=== PATIENT | female | born 1945 | race Caucasian/White ===

== ENCOUNTER 2019-06-27 05:03 | Emergency (ER) | payer MEDICARE ==
[2019-06-27] MEDS ORDERED: FENTANYL CITRATE INJ/PF 100 MCG/2 ML AMPUL IV ONE (05:11)
[2019-06-27] MEDS ORDERED: ONDANSETRON HCL INJ/PF 4 MG/2 ML SDV IV ONE ×2 (05:12→07:46)
--- NOTE | 2019-06-27 05:16 | ER Document Report ---
ED Medical Screen (RME) - General Stated Complaint: CHEST PAIN Time Seen by Provider: 06/27/19 05:07 Notes: 73-year-old female chief complaint of chest pain in her lower chest and upper abdomen that started last night around 11 PM, symptoms started resolving and then came back, intermittently have been sharp, denies radiation to the back. She states she got nauseated and vomited once. Past medical history includes CABG, CAD with stents, hypertension, hyperlipidemia, GERD. Denies abdominal surgeries. TRAVEL OUTSIDE OF THE [place] IN LAST 30 DAYS: No - Related Data Allergies/Adverse Reactions: atorvastatin calcium [From Lipitor] Allergy (Verified 02/19/13 17:27) ciprofloxacin [From Cipro] Allergy (Verified 02/19/13 17:27) ciprofloxacin HCl [From Cipro] Allergy (Verified 02/19/13 17:27) oxycodone [Oxycodone] Allergy (Verified 02/19/13 17:27) prednisone [Prednisone] Allergy (Verified 02/19/13 17:27) Sulfa (Sulfonamide Antibiotics) Allergy (Verified 02/19/13 17:27) butorphanol tartrate [From Stadol] Adverse Reaction (Verified 02/19/13 17:27) codeine [Codeine] Adverse Reaction (Verified 02/19/13 17:27) Past Medical History - Past Medical History Cardiac Medical History: Reports: Hx Heart Attack Pulmonary Medical History: Reports: Hx Asthma - as a child Endocrine Medical History: Reports: Hx Hypothyroidism Past Surgical History: Reports: Hx Cardiac Catheterization, Hx Cardiac Surgery - CABG, Hx Cholecystectomy, Hx Open Heart Surgery, Hx Thyroid Surgery, Hx Tubal Ligation - Immunizations Immunizations up to date: Yes Hx Diphtheria, Pertussis, Tetanus Vaccination: Yes Physical Exam - General General appearance: Other - Patient is alert and cooperative but appears to be in pain and is restless - Abdominal Tenderness: Tender - Tender in the generalized upper abdomen Course - Re-evaluation Re-evalutation: Patient is in pain. She does have unremarkable vital signs initially, she does have upper abdominal pain and vomited, patient will be treated for pain and nausea, work-up for cardiopulmonary and abdominal causes is pending. I have greeted and performed a rapid initial assessment of this patient. A comprehensive ED assessment and evaluation of the patient, analysis of test resu lts and completion of the medical decision making process will be conducted by additional ED providers.
[2019-06-27 05:22] LABS: ABSOLUTE BASOPHILS # (AUTO) 0.1 10^3/uL (0.0-0.2); ABSOLUTE EOSINOPHILS # (AUTO) 0.2 10^3/uL (0.0-0.6); ABSOLUTE LYMPHOCYTES (AUTO) 1.4 10^3/uL (0.5-4.7); ABSOLUTE MONOCYTES (AUTO) 0.5 10^3/uL (0.1-1.4); ABSOLUTE NEUT (AUTO) 5.8 10^3/uL (1.7-8.2); BASOPHILS % (AUTO) 1.1 % (0-2); EOSINOPHILS % (AUTO) 2.1 % (0-6); HEMOGLOBIN 12.7 g/dL (12.0-15.5); LYMPHOCYTES % (AUTO) 17.9 % (13-45); MEAN CORPUSCULAR HEMOGLOBIN 30.1 pg (27.0-33.4); MEAN CORPUSCULAR HGB CONC 34.4 g/dL (32.0-36.0); MEAN CORPUSCULAR VOLUME 87 fl (80-97); MONOCYTES % (AUTO) 6.8 % (3-13); PLATELET COUNT 195 10^3/uL (150-450); RED BLOOD COUNT 4.24 10^6/uL (3.72-5.28); RED CELL DISTRIBUTION WIDTH 13.6 % (11.5-14.0); SEGMENTED NEUTROPHILS % (AUTO) 72.1 % (42-78); TOTAL CELLS COUNTED % (AUTO) 100 %
[2019-06-27 05:40] LABS: ALBUMIN 3.5 g/dL (3.5-5.0); ALKALINE PHOSPHATASE 66 U/L (38-126); ANION GAP 6 (5-19); ASPARTATE AMINO TRANSFERASE 20 U/L (14-36); BILIRUBIN,DIRECT 0.2 mg/dL (0.0-0.4); BILIRUBIN,TOTAL 0.4 mg/dL (0.2-1.3); BLOOD UREA NITROGEN 22 mg/dL (7-20); CALCIUM 8.4 mg/dL (8.4-10.2); CARBON DIOXIDE 22 mmol/L (22-30); CHLORIDE 106 mmol/L (98-107); GLUCOSE 126 mg/dL (75-110); POTASSIUM 4.6 mmol/L (3.6-5.0); TOTAL PROTEIN 6.3 g/dL (6.3-8.2)
--- NOTE | 2019-06-27 06:09 | ER Document Report ---
ED General - General Chief Complaint: Chest Pain Stated Complaint: CHEST PAIN Time Seen by Provider: 06/27/19 05:07 Primary Care Provider: CHARMAINE HURTADO NP [Primary Care Provider] - Follow up as needed Mode of Arrival: Medic Information source: Patient, Emergency Med Personnel TRAVEL OUTSIDE OF THE [place] IN LAST 30 DAYS: No - HPI Onset: Yesterday Onset/Duration: Gradual, Worse Quality of pain: Sharp, Throbbing Severity: Severe Pain Level: 5 Context: Patient is a 73-year-old female presenting to the emergency department chief complaint of chest pain, patient is coming in via EMS. Patient states that it started about 11 PM last evening patient states that by 3 AM the pain was 10 out of 10 and EMS was called to the house. Patient states she did take 2 nitroglycerin prior to EMS arrival and EMS gave her 2 sublingual sprays of nitro when she presented to the emergency department she was given 50 mcg of fentanyl to assist with pain management. Patient does have a prior history of [place] in 1989 CABG in 1995 angioplasty to the right lower extremity several weeks back. Patient states that she was outside cutting the grass and weed eating yesterday. Associated symptoms: Nausea, Sweating Exacerbated by: Denies Relieved by: Denies Similar symptoms previously: Yes Recently seen / treated by doctor: No - Related Data Allergies/Adverse Reactions: atorvastatin calcium [From Lipitor] Allergy (Verified 02/19/13 17:27) ciprofloxacin [From Cipro] Allergy (Verified 02/19/13 17:27) ciprofloxacin HCl [From Cipro] Allergy (Verified 02/19/13 17:27) oxycodone [Oxycodone] Allergy (Verified 02/19/13 17:27) prednisone [Prednisone] Allergy (Verified 02/19/13 17:27) Sulfa (Sulfonamide Antibiotics) Allergy (Verified 02/19/13 17:27) butorphanol tartrate [From Stadol] Adverse Reaction (Verified 02/19/13 17:27) codeine [Codeine] Adverse Reaction (Verified 02/19/13 17:27) Past Medical History - General Information source: Patient, Emergency Med Personnel, [facility] Records - Social History Smoking Status: Current Every Day Smoker Cigarette use (# per day): Yes Chew tobacco use (# tins/day): No Smoking Education Provided: Yes Frequency of alcohol use: None Drug Abuse: None Lives with: Spouse/Significant other Family History: Reviewed & Not Pertinent Patient has suicidal ideation: No Patient has homicidal ideation: No - Past Medical History Cardiac Medical History: Reports: Hx Coronary Artery Disease, Hx Heart Attack Pulmonary Medical History: Reports: Hx Asthma - as a child Endocrine Medical History: Reports: Hx Hypothyroidism Past Surgical History: Reports: Hx Cardiac Catheterization, Hx Cardiac Surgery - CABG, Hx Cholecystectomy, Hx Open Heart Surgery, Hx Thyroid Surgery, Hx Tubal Ligation - Immunizations Immunizations up to date: Yes Hx Diphtheria, Pertussis, Tetanus Vaccination: Yes Hx Pneumococcal Vaccination: 01/26/14 Review of Systems - Review of Systems Constitutional: Diaphoresis EENT: No symptoms reported Cardiovascular: See HPI Respiratory: No symptoms reported Gastrointestinal: No symptoms reported Genitourinary: No symptoms reported Female Genitourinary: No symptoms reported Musculoskeletal: No symptoms reported Skin: No symptoms reported Hematologic/Lymphatic: No symptoms reported Neurological/Psychological: No symptoms reported -: Yes All other systems reviewed and negative Physical Exam - Vital signs Vitals: BP 142/77 H 06/27/19 05:11 Course - Re-evaluation Re-evalutation: 06/27/19 06:30 Called [facility] auto accept for Chest Pain/ NSTEMI, currently waiting on bed assignment. Patient's laboratory EKG and radiologic results have been reviewed. Considering the patient's prior history and presenting symptomatology I feel most appropriate the patient qualifies for transfer to higher level care facility for NSTEMI. 06/27/19 06:52 Patient accepted at [facility], Dr Kody Matute. Currently waiting transportation. Patient has been maintained on a athletic monitor while in emergency department after initial management patient has remained stable without decompensation. Repeat cardiac troponin has been ordered for 0 700. 06/27/19 08:08 EMS is here for accepting the patient - Vital Signs Vital signs: Temp Pulse Resp BP Pulse Ox 97.5 F 14 116/65 92 06/27/19 07:30 06/27/19 07:31 06/27/19 07:31 06/27/19 07:31 - Laboratory Result Diagrams: 06/27/19 05:00 06/27/19 05:00 Laboratory results interpreted by me: 06/27/19 05:00 Sodium 133.5 L BUN 22 H Glucose 126 H - EKG Interpretation by Nh EKG shows normal: Sinus rhythm Rate: Normal Rhythm: NSR When compared to previous EKG there are: Previous EKG unavailable Additional EKG results interpreted by me: 06/27/19 08:07 Initial EKG obtained at 0511 hrs. showed sinus rhythm [address] elevation mild left axis deviation no ectopy repeat EKG at 0609 similar rhythm rate of 51 bpm there is PVCs and no appreciable changes in morphology 30 EKG was obtained at 8 AM secondary to increasing chest pain which does show increasing T wave inversion in the domingo-lateral leads Discharge - Discharge Clinical Impression: NSTEMI (non-ST elevated myocardial infarction), Tobacco use disorder Chest pain Qualifiers: Chest pain type: unspecified Qualified Code(s): R07.9 - Chest pain, unspecified Condition: Stable Disposition: [facility] [place] Referrals: CHARMAINE HURTADO NP [Primary Care Provider] - Follow up as needed
--- NOTE | 2019-06-27 06:37 | RADIOLOGY REPORT (SQ) ---
EXAM DESCRIPTION: XR CHEST 1 VIEW COMPLETED DATE/TME: 06/27/2019 05:11 CLINICAL HISTORY: 73 years, Female, chest pain COMPARISON: 10/28/2014 chest NUMBER OF VIEWS: 1 TECHNIQUE: Portable chest LIMITATIONS: None. FINDINGS: Heart size is normal. Stable postsurgical change. Atheromatous change thoracic aorta. No pneumothorax. Patchy airspace opacity left lung base. IMPRESSION: Patchy left basilar airspace opacity copyright 2010 [employer]- All Rights Reserved
[2019-06-27] MEDS ORDERED: NITROGLYCERIN 2% OINTMENT 1 GM PACKET TP ONE (07:43)
[2019-06-27] MEDS ORDERED: NITROGLYCERIN 2% OINTMENT 1 GM PACKET ONE (07:47)
[2019-06-27] MEDS ORDERED: ONDANSETRON HCL INJ/PF 4 MG/2 ML SDV ONE (07:47)
[2019-06-27 08:15] VITALS: BP 110/81
--- NOTE | 2019-06-27 08:27 | EKG REPORT ---
SEVERITY:- ABNORMAL ECG - SINUS RHYTHM FIRST DEGREE AV BLOCK BORDERLINE LEFT AXIS DEVIATION PROBABLE ANTEROSEPTAL INFARCT, AGE INDETERM ABNORMAL T, CONSIDER ISCHEMIA, ANT-LAT LEADS BORDERLINE PROLONGED QT INTERVAL : Confirmed by: Jeevan Jaimes 27-Jun-2019 08:26:43
--- NOTE | 2019-06-27 08:28 | EKG REPORT ---
SEVERITY:- ABNORMAL ECG - SINUS RHYTHM BORDERLINE LEFT AXIS DEVIATION ANTERIOR INFARCT, AGE INDETERMINATE : Confirmed by: Jeevan Jaimes 27-Jun-2019 08:27:03
--- NOTE | 2019-06-27 08:28 | EKG REPORT ---
SEVERITY:- ABNORMAL ECG - SINUS RHYTHM VENTRICULAR PREMATURE COMPLEX PROBABLE ANTEROSEPTAL INFARCT, OLD NONSPECIFIC T ABNORMALITIES, DIFFUSE LEADS : Confirmed by: Jeevan Jaimes 27-Jun-2019 08:26:54
== END 2019-06-27 08:20 | disposition short-term general hospital (02) ==
LOC: ER 05:03
DX: I21.4 Non-ST elevation (NSTEMI) myocardial infarction (principal); R07.9 Chest pain, unspecified; I25.2 Old myocardial infarction; R11.0 Nausea; R61 Generalized hyperhidrosis; Z88.8 Allergy status to other drugs, medicaments and biological substances; F17.210 Nicotine dependence, cigarettes, uncomplicated; Z88.2 Allergy status to sulfonamides; Z88.1 Allergy status to other antibiotic agents; I25.10 Atherosclerotic heart disease of native coronary artery without angina pectoris; J45.909 Unspecified asthma, uncomplicated
CPT/HCPCS: 93005; 96376; 99285; 96374; 96375; 36415; 83690; 85025; 80053; 84484; 71045; 93010; A9270; J3010; J2405